=== PATIENT | female | born 1940 | race Caucasian/White ===

== ENCOUNTER 2020-11-12 09:54 | Emergency (ER) | payer MEDICARE, OTHER ==
[~2020-11-12] VITALS: Ht 149.9 cm; Wt 80.7 kg
[~2020-11-12 09:54] MED LIST: ALENDRONATE SOD70 MG PO; AMLODIPINE BES2.5 MG PO; ASCORBIC ACID500 MG PO; ATORVASTATIN CA40 MG PO; BUMEX PO; CARTIA XT300 MG PO; CARVEDILOL12.5 MG PO; CARVEDILOL3.125 MG PO; Calcium Carbonate PO; DIOVAN320 MG; DOCUSATE SODIU100 M1 PO; ENOXAPARIN40 MG/0.4 SC; FEOSOL325 MG PO; FUROSEMIDE40 MG PO; GABAPENTIN300 MG PO; HYDRALAZINE HCL25 MG PO; KEFLEX250 MG PO; LACTULOSE20 GM/30 M PO; LEVAQUIN500 MG PO; LEVEMIR100 UNIT/1 SC; LISINOPRIL40 MG PO; MELATONIN 1 MG1 EACH PO; Multivitamins/Minerals PO; NIFEDIPINE ER30 M1 PO; NORVASC10 MG PO; NOVOLOG MI100 UNITS/; PANTOPRAZOLE SO40 MG PO; PROTONIX40 MG/ML PO; TORSEMIDE10 MG; TORSEMIDE10 MG PO; ULTRAM 50MG50 MG PO; ZOFRAN ODT4 MG PO
[2020-11-12 10:52] LABS: BASOPHILS # (AUTO) 0.1 (0.0-0.1); EOSINOPHILS # (AUTO) 0.3 (0.0-0.4); EOSINOPHILS % 5.7 % (0.0-6.0); HEMATOCRIT 32.7 % (34.2-44.1); HEMOGLOBIN 10.4 g/dL (12.0-16.0); LYMPHOCYTES # (AUTO) 1.3 (1.0-3.2); LYMPHOCYTES % 24.5 % (18.0-39.1); MEAN CORPUSCULAR HEMOGLOBIN 28.2 pg (28-32); MEAN CORPUSCULAR HGB CONC 31.8 g/dL (31-35); MEAN CORPUSCULAR VOLUME 88.6 fL (81-99); MONOCYTES # (AUTO) 0.4 (0.2-0.8); MONOCYTES % 6.7 % (4.4-11.3); NEUTROPHILS # (AUTO) 3.2 (2.1-6.9); NEUTROPHILS % 61.7 % (38.7-80.0); PLATELET COUNT 199 x10e3/uL (140-360); RED BLOOD COUNT 3.69 x10e6/uL (3.6-5.1); RED CELL DISTRIBUTION WIDTH 13.2 % (11.7-14.4)
[2020-11-12 11:13] LABS: ALBUMIN 3.2 g/dL (3.5-5.0); ALBUMIN/GLOBULIN RATIO 0.9 (0.8-2.0); ANION GAP 15.8 mmol/L (8-16); CALCIUM 8.7 mg/dL (8.4-10.2); CREATININE, SERUM 2.14 mg/dL (0.57-1.11); POTASSIUM 4.8 mmol/L (3.5-5.1)
[2020-11-12 11:22] LABS: CREATINE KINASE MB 1.6 ng/mL (0-5.0)
[2020-11-12] MEDS ORDERED: HYDRALAZINE HCL 20 MG/ML VIAL IV STA (12:32)
[2020-11-12 14:01] VITALS: BP 158/46
== END 2020-11-12 14:10 | disposition home or self-care (01) ==
LOC: ER 09:59
DX: M79.604 Pain in right leg (principal); R60.9 Edema, unspecified; N28.9 Disorder of kidney and ureter, unspecified; I50.9 Heart failure, unspecified; E11.65 Type 2 diabetes mellitus with hyperglycemia; I10 Essential (primary) hypertension; E78.5 Hyperlipidemia, unspecified; I25.10 Atherosclerotic heart disease of native coronary artery without angina pectoris; Z85.038 Personal history of other malignant neoplasm of large intestine
CPT/HCPCS: 36415; 71045; 80053; 82550; 82553; 83880; 84484; 85025; 93005; 93971; 99283; J0360

== ENCOUNTER 2021-02-18 20:08 | Emergency (ER) | payer MEDICARE, OTHER ==
[~2021-02-18] VITALS: Ht 149.9 cm; Wt 80.7 kg
[2021-02-18] MEDS ORDERED: TETANUS/DIPHTHERIA TOX ADULT 0.5 ML SYR IM ONE (22:00)
== END 2021-02-18 23:02 | disposition home or self-care (01) ==
LOC: ER 20:42
DX: S00.83XA Contusion of other part of head, initial encounter (principal); S00.81XA Abrasion of other part of head, initial encounter; W05.0XXA Fall from non-moving wheelchair, initial encounter; Y92.320 Baseball field as the place of occurrence of the external cause; I10 Essential (primary) hypertension; E11.9 Type 2 diabetes mellitus without complications; I50.9 Heart failure, unspecified; I25.10 Atherosclerotic heart disease of native coronary artery without angina pectoris; E78.5 Hyperlipidemia, unspecified; Z85.038 Personal history of other malignant neoplasm of large intestine; Z85.3 Personal history of malignant neoplasm of breast
CPT/HCPCS: 70450; 90471; 90714; 99283